=== PATIENT | female | born 1930 | race African-American/Black ===

== ENCOUNTER 2016-04-06 11:29 | Emergency (ER) | payer OTHER ==
[~2016-04-06 11:29] MED LIST: ACETAMINOPHEN500 M1 GT; ALIGN4 MG GT; ALPHAGAN 020 DROPS/M OU; APRISO0.375 GM GT; ARICEPT 5MG TABL5 MG GT; AUGMENTIN250 MG GT; DEPAKOTE ER250 MG GT; ENEMA133 ML PR; FERROUS SU300 MG/5 M GT; LEVEMIR VI100 UNITS/ SQ; METRONIDAZOLE500 MG GT; MIRALAX17 GM GT; NAMENDA 10MG TA10 MG GT; NEXIUM20 MG GT; NOVOLOG VI100 UNIT/1 SQ; QUESTRAN PACKET4 GM GT; SSD20 GM TOP; TIMOPTIC OU; VENTOLIN (2.5 MG/3 M INH; XARELTO20 MG GT; [UNRECOGNIZED DRUG - OTHER] OU
[2016-04-06 12:15] LABS: BILIRUBIN 1+ mg/dL (NEGATIVE); BLOOD 3+ Ery/uL (NEGATIVE); CLARITY CLEAR (CLEAR); COLOR YELLOW (YELLOW); GLUCOSE (U) NORMAL (NORMAL); KETONE (U) TRACE mg/dL (NEGATIVE); LEUKOCYTES NEGATIVE Leu/uL (NEGATIVE); NITRITE NEGATIVE (NEGATIVE); PROTEIN 1+ mg/dL (NEGATIVE); SPECIFIC GRAVITY 1.025 (1.001-1.030); UROBILINOGEN 0.2 mg/dL (0.2-1.0); pH 5.5 (5.0-9.0)
[2016-04-06 12:19] LABS: URINARY RBC TNTC
[2016-04-06 12:20] LABS: BACTERIA TRACE
[2016-04-06 12:43] LABS: BASOPHIL 0.4 % (0-2); EOSINOPHIL 2.6 % (0-7); HCT 48.2 % (37.0-47.0); LYMPHOCYTE 13.5 % (15-48); MCV 79.3 fL (78.0-100.0); MONOCYTE 9.1 % (0-12); NEUTROPHIL 74.4 % (41-80); PLT 137 K/uL (150-400); RBC 6.08 M/uL (4.20-5.40); RDW 22.7 % (11.5-14.0); WBC 6.8 K/uL (4.0-10.5)
[2016-04-06 12:50] LABS: INR 1.24 (0.9-1.2); PROTHROMBIN TIME 15.2 SECONDS (11.7-14.0)
[2016-04-06 12:58] LABS: ALBUMIN 3.4 g/dL (3.4-4.8); BILIRUBIN - TOTAL 0.3 mg/dL (0.1-1.0); CREATININE 0.8 mg/dL (0.5-1.0); GLOBULIN (CALCULATION) 3.4 g/dL (2.2-4.2); POTASSIUM 4.2 mmol/L (3.5-5.1); TOTAL PROTEIN 6.8 g/dL (6.4-8.3)
== END 2016-04-06 18:14 | disposition other institution (70) ==
LOC: FER 11:29
PROVIDERS: Emergency Medicine
DX: E87.0 Hyperosmolality and hypernatremia (principal); T68.XXXA Hypothermia, initial encounter; F03.90 Unspecified dementia, unspecified severity, without behavioral disturbance, psychotic disturbance, mood disturbance, and anxiety; Z88.8 Allergy status to other drugs, medicaments and biological substances
CPT/HCPCS: 36415; 71010; 80053; 81001; 85025; 85610; 93005